=== PATIENT | male | born 1945 ===

== ENCOUNTER → 2019-06-30 | Emergency (ER) | payer OTHER ==
[~2019-06-30] VITALS: Ht 170.2 cm; Wt 88.5 kg
[~2019-06-30] MED LIST: ALLEGRA60 M1 PO; COZAAR100 MG; PROZAC10 MG PO; ZITHROMAX500 MG PO
== END | disposition home or self-care (01) ==
LOC: ER 17:50
DX: G44.89 Other headache syndrome (principal); R42 Dizziness and giddiness; R53.1 Weakness; X32.XXXA Exposure to sunlight, initial encounter; Y93.89 Activity, other specified; Y92.89 Other specified places as the place of occurrence of the external cause; Y99.8 Other external cause status